=== PATIENT | female | born 1940 | race Caucasian/White ===

== ENCOUNTER 2020-09-13 12:09 | Emergency (ER) | payer MEDICARE ==
[~2020-09-13] VITALS: Ht 170.2 cm; Wt 100.0 kg
[2020-09-13 12:36] VITALS: BP 176/73
== END 2020-09-13 12:36 | disposition left against medical advice (07) ==
LOC: ED 12:09
DX: F41.9 Anxiety disorder, unspecified (principal); J45.909 Unspecified asthma, uncomplicated; Z91.19 Patient's noncompliance with other medical treatment and regimen